=== PATIENT | male | born 1950 | race Caucasian/White ===

== ENCOUNTER 2018-01-21 13:58 | Outpatient (REF) | payer MEDICARE, OTHER, SELFPAY ==
[2018-01-21 19:00] LABS: Anion Gap 7.6 mmol/L (3-11); BUN 12 mg/dL (7-18); CO2 28.4 mmol/L (21.0-32.0); CREATININE 0.83 mg/dL (0.70-1.30); Calcium 8.8 mg/dL (8.5-10.1); Chloride 104 mmol/L (98-107); Glucose 109 mg/dL (70-100); Potassium 4.1 mmol/L (3.5-5.1); Sodium 140 mmol/L (136-145)
== END 2018-01-21 14:18 ==
LOC: NCHCN 13:58
PROVIDERS: PCP Physician Assistant; Visit Provider Internal Medicine
DX: I48.2 Chronic atrial fibrillation (principal); E78.5 Hyperlipidemia, unspecified; K21.9 Gastro-esophageal reflux disease without esophagitis; E66.3 Overweight
CPT/HCPCS: 80048

== ENCOUNTER 2019-06-02 12:37 | Outpatient (REF) | payer MEDICARE, OTHER, SELFPAY ==
[2019-06-02 19:03] LABS: Anion Gap 9.7 mmol/L (3-11); BUN 14 mg/dL (7-18); CO2 27.3 mmol/L (21.0-32.0); Calcium 8.4 mg/dL (8.5-10.1); Chloride 104 mmol/L (98-107); Glucose 83 mg/dL (74-106); Potassium 4.4 mmol/L (3.5-5.1); Sodium 141 mmol/L (136-145)
[2019-06-02 19:10] LABS: HCT 45.3 % (40.0-50.0); HGB 15.8 g/dL (13.5-17.5); Mean Corp. HGB Concentration 34.9 g/dL (32.0-36.0); Mean Corpuscular Hemoglobin 30.2 pg (27.0-33.0); Mean Corpuscular Volume 86.6 fL (80-95); Platelet Count 257 x1000/uL (130-400); RBC 5.23 m/cumm (4.50-6.00); RBC Distribution Width 12.9 % (11.8-14.1); White Blood Cell Count 7.98 k/cumm (4.4-10.8)
[2019-06-02 19:23] LABS: Calculated LDL 87 mg/dL (<100); Cholesterol 162 mg/dL (<200); HDL Cholesterol 26 mg/dL (40-60); Triglyceride 247 mg/dL (<150)
[2019-06-02 19:31] LABS: Hemoglobin A1C 5.5 % (3.8-5.6)
== END 2019-06-02 12:57 ==
LOC: NCHCN 12:37
PROVIDERS: PCP Physician Assistant; Visit Provider Internal Medicine
DX: I48.20 Chronic atrial fibrillation, unspecified (principal); N40.0 Benign prostatic hyperplasia without lower urinary tract symptoms; E78.5 Hyperlipidemia, unspecified; R79.89 Other specified abnormal findings of blood chemistry; K21.9 Gastro-esophageal reflux disease without esophagitis
CPT/HCPCS: 80048; 80061; 85027; 83036

== ENCOUNTER 2019-07-02 11:17 | Outpatient (REF) | payer MEDICARE, OTHER, SELFPAY ==
[2019-07-02 20:42] LABS: C-Reactive Protein 1.11 mg/dL (0.0-0.3)
[2019-07-02 20:53] LABS: ESR 10 mm/hr (1-20)
== END 2019-07-02 11:37 ==
LOC: NCHCN 11:17
PROVIDERS: PCP Physician Assistant; Visit Provider Internal Medicine
DX: R51 Headache (principal); M50.30 Other cervical disc degeneration, unspecified cervical region; H10.823 Rosacea conjunctivitis, bilateral
CPT/HCPCS: 85652; 86140

== ENCOUNTER 2020-01-29 13:03 | Outpatient (REF) | payer MEDICARE, OTHER, SELFPAY ==
[2020-02-03 14:53] LABS: Patient Race White; SARS-CoV-2 RNA Undetected (Undetected); SARS-CoV-2 Specimen Source Nasal
== END 2020-01-29 13:23 ==
LOC: NCHCN 13:03
PROVIDERS: PCP Physician Assistant; Visit Provider Internal Medicine
DX: Z20.828 Contact with and (suspected) exposure to other viral communicable diseases (principal)
CPT/HCPCS: U0003

== ENCOUNTER 2020-10-27 09:32 | Outpatient (REF) | payer MEDICARE, OTHER, SELFPAY ==
[2020-11-04 12:20] LABS: Testosterone, Free 11.7 ng/dL (3.28-12.2); Testosterone, Total 432 ng/dL (240-950)
== END 2020-10-27 09:33 | disposition home or self-care (01) ==
LOC: NCHCN 09:32
PROVIDERS: PCP Physician Assistant; Visit Provider Internal Medicine
DX: F52.21 Male erectile disorder (principal)
CPT/HCPCS: 84402; 84403

== ENCOUNTER 2021-01-20 21:53 | Outpatient (REF) | payer MEDICARE, OTHER, SELFPAY ==
[2021-01-20 19:16] LABS: HCT 41.9 % (40.0-50.0); HGB 14.1 g/dL (13.5-17.5); MCH 30.1 pg (27.0-33.0); MCHC 33.7 % (32.0-36.0); MCV 89.3 fL (80-95); MPV 10.7 fL (8.0-11.0); Platelet Count 230 10^3/uL (130-400); RBC 4.69 10^6/uL (4.36-5.78); RDW 12.6 % (11.8-14.1); RDW-SD 41.1 fL
[2021-01-20 19:30] LABS: ALT 23 U/L (16-63); Anion Gap 10.9 mmol/L (3-11); BUN 15 mg/dL (7-18); CO2 29.1 mmol/L (21.0-32.0); CREATININE 1.1 mg/dL (0.70-1.30); Calcium 8.4 mg/dL (8.5-10.1); Chloride 101 mmol/L (98-107); Glucose 100 mg/dL (74-106); LDL CHOLESTEROL 80 mg/dL (<100); Potassium 4.1 mmol/L (3.5-5.1); Sodium 141 mmol/L (136-145)
== END 2021-01-20 21:54 | disposition home or self-care (01) ==
LOC: NCHCN 21:53
PROVIDERS: PCP Physician Assistant; Visit Provider Internal Medicine
DX: K21.9 Gastro-esophageal reflux disease without esophagitis (principal); I48.20 Chronic atrial fibrillation, unspecified; F52.21 Male erectile disorder
CPT/HCPCS: 80048; 83721; 85027; 84460

== ENCOUNTER 2021-12-16 20:32 | Outpatient (REF) | payer MEDICARE, OTHER, SELFPAY ==
[2021-12-16 19:08] LABS: HGB 15.6 g/dL (13.5-17.5); MCH 30.2 pg (27.0-33.0); MCHC 35.5 % (32.0-36.0); MCV 85 fL (80-95); MPV 10.8 fL (8.0-11.0); Platelet Count 247 10^3/uL (130-400); RBC 5.16 10^6/uL (4.36-5.78); RDW 12.8 % (11.8-14.1); RDW-SD 39.2 fL; WBC 8.71 10^3/uL (4.4-10.8)
[2021-12-16 20:43] LABS: ALT 24 U/L (16-63); Anion Gap 9.5 mmol/L (3-11); BUN 15 mg/dL (7-18); CO2 24.5 mmol/L (21.0-32.0); CREATININE 1.1 mg/dL (0.70-1.30); Calculated LDL 110 mg/dL (<100); Chloride 105 mmol/L (98-107); Cholesterol 171 mg/dL (<200); Estimated GFR 71.32 (mL/min/1.73m2); Glucose 91 mg/dL (74-106); HDL Cholesterol 37 mg/dL (40-60); Potassium 3.9 mmol/L (3.5-5.1); Sodium 139 mmol/L (136-145); Triglyceride 124 mg/dL (<150)
== END 2021-12-16 20:33 | disposition home or self-care (01) ==
LOC: NCHCN 20:32
PROVIDERS: PCP Physician Assistant; Visit Provider Internal Medicine
DX: E78.5 Hyperlipidemia, unspecified (principal); I48.20 Chronic atrial fibrillation, unspecified; Z00.00 Encounter for general adult medical examination without abnormal findings
CPT/HCPCS: 80048; 80061; 85027; 84460

== ENCOUNTER 2022-07-25 17:13 | Outpatient (REF) | payer MEDICARE, OTHER, SELFPAY ==
--- NOTE | 2022-07-25 16:30 | SKI_PTH ---
PATIENT: Solomon Persaud LOC: [facility]#:[id number] AGE/SX: 72/M ROOM: RE07/25/[address]: Rehana Jorge : 1950 BED: DIS: 07/25/2022 SPEC #: [id number] RECD: 07/25/22 18:13 STATUS: BANDAR REQ #: [id number] EAN: 07/25/22 16:[address]: Rehana Jorge DEPT: Surgical Specimen RECD BY: Barbie Adams ENTERED: 07/25/22 18:13 SP TYPE: VLAD JULES DR: Rohith Arce Tissues: 1 - SKIN BIOPSY(SHAVE/PUNCH) Procedures: SKIN LEVEL 4 Comments: [id number]
== END 2022-07-25 17:14 | disposition home or self-care (01) ==
LOC: NCHCN 17:13
PROVIDERS: PCP Physician Assistant; Visit Provider Physician Assistant
DX: D22.5 Melanocytic nevi of trunk (principal)
CPT/HCPCS: 88305

== ENCOUNTER 2022-08-16 16:31 | Outpatient (REF) | payer MEDICARE, OTHER, SELFPAY ==
[2022-08-16 19:53] LABS: ALT 30 U/L (16-63); AST 27 U/L (15-37); Alkaline Phosphatase 78 U/L (46-116); Bilirubin, Direct 0.2 mg/dL (0.0-0.2); Bilirubin, Total 0.9 mg/dL (0.2-1.0); Total Protein 7.6 g/dL (6.4-8.2)
[2022-08-25 09:04] LABS: PSA, Diagnostic 2.3 ng/mL (<=6.5)
== END 2022-08-16 16:32 | disposition home or self-care (01) ==
LOC: NCHCN 16:31
PROVIDERS: PCP Physician Assistant; Visit Provider Internal Medicine
DX: R31.0 Gross hematuria (principal); R74.8 Abnormal levels of other serum enzymes
CPT/HCPCS: 80076; 84153

== ENCOUNTER 2023-08-31 15:34 | Outpatient (REF) | payer MEDICARE, OTHER, SELFPAY ==
[2023-08-31 19:01] LABS: HCT 42.7 % (40.0-50.0); HGB 14.7 g/dL (13.5-17.5); MCH 30.6 pg (27.0-33.0); MCHC 34.4 % (32.0-36.0); MCV 89 fL (80-95); MPV 11.6 fL (8.0-11.0); Platelet Count 166 10^3/uL (130-400); RBC 4.81 10^6/uL (4.36-5.78); RDW 12.7 % (11.8-14.1); RDW-SD 41.5 fL
[2023-08-31 19:24] LABS: ALT 19 U/L (16-63); AST 26 U/L (15-37); Albumin 3.7 g/dL (3.4-5.0); Alkaline Phosphatase 77 U/L (46-116); BUN 12 mg/dL (7-18); Bilirubin, Total 0.8 mg/dL (0.2-1.0); Calcium 9.1 mg/dL (8.5-10.1); Calculated LDL 87 mg/dL (<100); Chloride 106 mmol/L (98-107); Cholesterol 142 mg/dL (<200); Estimated GFR 78.98 (mL/min/1.73m2); Glucose 98 mg/dL (74-106); HDL Cholesterol 41 mg/dL (40-60); Potassium 4.1 mmol/L (3.5-5.1); Sodium 139 mmol/L (136-145); TSH 4.24 uIU/Ml (0.36-3.74); Total Protein 7.2 g/dL (6.4-8.2); Triglyceride 74 mg/dL (<150)
== END 2023-08-31 15:35 | disposition home or self-care (01) ==
LOC: NCHCN 15:34
PROVIDERS: PCP Physician Assistant; Visit Provider Internal Medicine
DX: E78.5 Hyperlipidemia, unspecified (principal); R53.83 Other fatigue
CPT/HCPCS: 80053; 80061; 85027; 84443

== ENCOUNTER 2024-09-03 14:25 | Outpatient (REF) | payer MEDICARE, OTHER, SELFPAY ==
[2024-09-03 20:46] LABS: HCT 44.3 % (40.0-50.0); HGB 15.3 g/dL (13.5-17.5); MCH 30.4 pg (27.0-33.0); MCHC 34.5 % (32.0-36.0); MCV 88 fL (80-95); MPV 10.7 fL (8.0-11.0); Platelet Count 233 10^3/uL (130-400); RBC 5.04 10^6/uL (4.36-5.78); RDW 12.7 % (11.8-14.1); RDW-SD 40.9 fL; WBC 7.01 10^3/uL (4.4-10.8)
[2024-09-03 21:09] LABS: ALT 27 U/L (16-63); AST 25 U/L (15-37); Albumin 3.9 g/dL (3.4-5.0); Alkaline Phosphatase 82 U/L (46-116); Anion Gap 8.5 mmol/L (3-11); BUN 15 mg/dL (7-18); Bilirubin, Total 0.9 mg/dL (0.2-1.0); CO2 25.5 mmol/L (21.0-32.0); Calcium 8.8 mg/dL (8.5-10.1); Calculated LDL 88 mg/dL (<100); Chloride 109 mmol/L (98-107); Cholesterol 143 mg/dL (<200); Estimated GFR 78.49 (mL/min/1.73m2); Glucose 106 mg/dL (74-106); HDL Cholesterol 36 mg/dL (>or=40); Potassium 4.1 mmol/L (3.5-5.1); Sodium 143 mmol/L (136-145); Total Protein 7.2 g/dL (6.4-8.2); Triglyceride 96 mg/dL (<150)
== END 2024-09-03 14:26 | disposition home or self-care (01) ==
LOC: NCHCN 14:25
PROVIDERS: PCP Physician Assistant; Visit Provider Internal Medicine
DX: E78.5 Hyperlipidemia, unspecified (principal); I48.91 Unspecified atrial fibrillation
CPT/HCPCS: 80053; 80061; 85027